=== PATIENT | female | born 2000 | race Two or more races ===

== ENCOUNTER 2024-09-15 11:38 | Emergency (ER) | payer MEDICAID, SELFPAY ==
[2024-09-15 11:39] VITALS: BMI 37.7
[2024-09-15 12:07] VITALS: BP 139/83; PULSE 67; RESP 17; TEMP 37.1; O2SAT 97
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
[2024-09-15] MEDS: ACETAMINOPHEN 500 MG TABLET 1000 MG PO (12:42)
== END 2024-09-15 14:29 | disposition home or self-care (01) ==
PROVIDERS: Emergency Provider Nurse Practitioner Family
DX: S83.92XA Sprain of unspecified site of left knee, initial encounter (principal); V89.2XXA Person injured in unspecified motor-vehicle accident, traffic, initial encounter
CPT/HCPCS: 73562; 99283; A9270

== ENCOUNTER 2024-09-16 10:15 | Emergency (ER) | payer MEDICAID, SELFPAY ==
[2024-09-16 10:26] VITALS: BP 137/83; PULSE 75; RESP 16; TEMP 37.1; O2SAT 98; BMI 38.2
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
[2024-09-16] MEDS: KETOROLAC INJ 30 MG/ML VIAL IM (10:57)
== END 2024-09-16 11:08 | disposition home or self-care (01) ==
PROVIDERS: Emergency Provider Nurse Practitioner Primary Care; PCP Family Medicine
DX: S83.92XA Sprain of unspecified site of left knee, initial encounter (principal); V89.2XXA Person injured in unspecified motor-vehicle accident, traffic, initial encounter
CPT/HCPCS: 96372; 99283; J1885